=== PATIENT | male | born 1990 | race African-American/Black ===

== ENCOUNTER → 2020-11-04 | Outpatient (CLI) | payer BC ==
[~2020-11-04] MED LIST: CLARITIN10 MG PO; COLACE100 MG PO; IBUPROFEN 600600 M1 PO; NORCO 5-325 TA1 EACH PO; PERCOCET 5-3251 EACH PO; PREDNISONE 20 M20 M1 PO; PROVENTIL HFA6.7 G1 INH; ULTRAM 50MG TAB50 MG PO; ZPAK PO
== END ==
LOC: LAB 08:53
PROVIDERS: ATTEND Nurse Practitioner
DX: R50.9 Fever, unspecified (principal); R11.10 Vomiting, unspecified; R19.7 Diarrhea, unspecified; Z20.822 Contact with and (suspected) exposure to COVID-19

== ENCOUNTER 2021-03-09 11:15 | Emergency (ER) | payer BC ==
[~2021-03-09] VITALS: Ht 182.9 cm; Wt 112.0 kg
[2021-03-09 11:57] LABS: URINE BILIRUBIN NEGATIVE (Negative); URINE BLOOD TRACE (Negative); URINE CLARITY CLEAR; URINE COLOR YELLOW; URINE GLUCOSE-RANDOM* NEGATIVE (Negative); URINE KETONES TRACE (Negative); URINE LEUKOCYTES-REFLEX NEGATIVE (Negative); URINE NITRITE-REFLEX NEGATIVE (Negative); URINE PROTEIN (DIPSTICK) NEGATIVE (Negative); URINE UROBILINOGEN 0.2 E.U./dl (0.2-1.0)
[2021-03-09 11:59] LABS: BASOPHILS 0.4 % (0.0-2.0); HEMATOCRIT 41.5 % (42.0-52.0); HEMOGLOBIN 14.4 gm/dL (14.0-18.0); LYMPHOCYTES 7.9 % (24.0-44.0); MCH 30.8 pg (26.0-34.0); MCHC 34.8 g/dL (28.0-37.0); MCV 88.5 fL (80.0-100.0); MONOCYTES 7.3 % (1.0-8.0); PLATELET COUNT 282 thou/uL (150-400); POLYS 84.4 % (36.0-66.0); RBC 4.68 mil/uL (4.50-6.00); RDW 12.8 % (10.5-14.5); WBC 10.6 thou/uL (4.0-11.0)
[2021-03-09 12:17] LABS: CREATININE 1.3 mg/dL (0.7-1.3); POTASSIUM 3.6 mmol/L (3.5-5.1)
[2021-03-09 12:23] LABS: ALBUMIN 4.4 g/dL (3.4-5.0); TOTAL BILIRUBIN 0.7 mg/dL (0.2-1.0); TOTAL PROTEIN 8.3 g/dL (6.4-8.2)
[2021-03-09] MEDS ORDERED: ZOFRAN ODT4 MG PO (12:51)
[2021-03-09 12:57] VITALS: BP 124/73
== END 2021-03-09 12:57 | disposition home or self-care (01) ==
LOC: ER 11:15
PROVIDERS: Emergency Medicine
DX: R11.2 Nausea with vomiting, unspecified (principal); J45.909 Unspecified asthma, uncomplicated; M48.00 Spinal stenosis, site unspecified; Z79.899 Other long term (current) drug therapy; Z20.822 Contact with and (suspected) exposure to COVID-19